=== PATIENT | male | born 1930 | race Caucasian/White ===

== ENCOUNTER 2020-11-14 18:47 | Inpatient (IN) ==
[2020-11-15 07:31] LABS: Basophils % 0.4 %; Eosinophils # 0.1 K/mcL (0.0-0.6); Hematocrit 49.4 % (37.5-50.1); Hemoglobin 16.9 g/dL (12.9-16.9); Immature Granulocytes % 0.2 % (0-4); Lymphocytes # 1.2 K/mcL (0.6-4.6); Lymphocytes % 23.8 %; Mean Corpuscular HGB Conc 34.2 g/dL (31.6-35.5); Mean Corpuscular Hemoglobin 30.6 pg (28.0-33.3); Mean Corpuscular Volume 89.5 fL (83.0-100.0); Mean Platelet Volume 11.4 fL (9.4-12.4); Monocytes # 0.7 K/mcL (0.0-1.3); Red Blood Count 5.52 M/mcL (4.19-5.50); Red Cell Distribution Width 14.2 % (11.5-14.5); Segmented Neutrophils % 59.6 %
[2020-11-15 07:32] LABS: BUN/Creatinine Ratio 21 (6-26); Blood Urea Nitrogen 21 mg/dL (8-23); Calcium 8.4 mg/dL (8.6-10.3); Carbon Dioxide 30 mEq/L (23-29); Chloride 103 mEq/L (98-107); Glucose 93 mg/dL (70-105); Osmolality,Calculated 291 (280-300); Potassium 3.7 mEq/L (3.5-5.1); Sodium 139 mEq/L (136-145); eGFR For African Americans > 60 (> 60); eGFR For Non-African Americans > 60 (> 60)
[2020-11-15 07:46] LABS: Platelet Count 91 K/mcL (140-400)
[2020-11-15] MEDS: Aspirin Enteric Coated 325 MG Tablet PO SCH (08:33)
[2020-11-15] MEDS: Metoprolol XL (24 HR) Succ 50 MG TAB.ER.24H PO SCH (08:33)
[2020-11-16] MEDS: Aspirin Enteric Coated 325 MG Tablet PO SCH (09:50)
[2020-11-16] MEDS: Metoprolol XL (24 HR) Succ 50 MG TAB.ER.24H PO SCH (09:51)
[2020-11-16] MEDS: hydroCHLOROthiazide 25 MG TABLET PO SCH (09:51)
[2020-11-16] MEDS: amLODIPine 5 MG TABLET PO SCH (09:56)
[2020-11-17] MEDS: hydroCHLOROthiazide 25 MG TABLET PO SCH (07:07)
[2020-11-17] MEDS: Metoprolol XL (24 HR) Succ 50 MG TAB.ER.24H PO SCH (07:29)
[2020-11-17] MEDS: amLODIPine 5 MG TABLET PO SCH (07:29)
[2020-11-17] MEDS: Aspirin Enteric Coated 325 MG Tablet PO SCH (07:30)
[2020-11-17] MEDS ORDERED: cloNIDine HCL 0.1 MG TABLET PO PRN (13:20)
[2020-11-18] MEDS: Aspirin Enteric Coated 325 MG Tablet PO SCH (08:26)
[2020-11-18] MEDS: hydroCHLOROthiazide 25 MG TABLET PO SCH (08:26)
[2020-11-18] MEDS: amLODIPine 5 MG TABLET PO SCH (08:26)
[2020-11-18] MEDS: Metoprolol XL (24 HR) Succ 50 MG TAB.ER.24H PO SCH (08:26)
[2020-11-19 07:06] LABS: Basophils % 0.4 %; Eosinophils % 0.1 %; Hemoglobin 17.3 g/dL (12.9-16.9); Immature Granulocytes % 0.8 % (0-4); Lymphocytes # 1.1 K/mcL (0.6-4.6); Lymphocytes % 12.7 %; Mean Corpuscular HGB Conc 34.6 g/dL (31.6-35.5); Mean Corpuscular Hemoglobin 30.8 pg (28.0-33.3); Mean Corpuscular Volume 89.1 fL (83.0-100.0); Mean Platelet Volume 11.5 fL (9.4-12.4); Monocytes # 1.1 K/mcL (0.0-1.3); Monocytes % 12.2 %; Neutrophils # 6.6 K/mcL (1.6-8.9); Platelet Count 142 K/mcL (140-400); Red Blood Count 5.61 M/mcL (4.19-5.50); Red Cell Distribution Width 13.9 % (11.5-14.5); Segmented Neutrophils % 73.8 %
[2020-11-19 07:34] LABS: BUN/Creatinine Ratio 28 (6-26); Blood Urea Nitrogen 30 mg/dL (8-23); Calcium 8.7 mg/dL (8.6-10.3); Carbon Dioxide 28 mEq/L (23-29); Chloride 101 mEq/L (98-107); Glucose 111 mg/dL (70-105); Osmolality,Calculated 291 (280-300); Potassium 3.9 mEq/L (3.5-5.1); Sodium 137 mEq/L (136-145); eGFR For African Americans > 60 (> 60); eGFR For Non-African Americans > 60 (> 60)
[2020-11-19] MEDS: Aspirin Enteric Coated 325 MG Tablet PO SCH (10:10)
[2020-11-19] MEDS: amLODIPine 5 MG TABLET PO SCH (10:10)
[2020-11-19] MEDS: Metoprolol XL (24 HR) Succ 50 MG TAB.ER.24H PO SCH (10:10)
[2020-11-19] MEDS: hydroCHLOROthiazide 25 MG TABLET PO SCH (10:10)
[2020-11-20] MEDS: hydroCHLOROthiazide 25 MG TABLET PO SCH (08:40)
[2020-11-20] MEDS: amLODIPine 5 MG TABLET PO SCH (08:41)
[2020-11-20] MEDS: Aspirin Enteric Coated 325 MG Tablet PO SCH (08:41)
[2020-11-20] MEDS: Metoprolol XL (24 HR) Succ 50 MG TAB.ER.24H PO SCH (08:42)
[2020-11-20] MEDS: Acetaminophen 325 MG TABLET PO PRN (17:25)
[2020-11-21] MEDS: Acetaminophen 325 MG TABLET PO PRN (04:46)
[2020-11-21] MEDS: hydroCHLOROthiazide 25 MG TABLET PO SCH (09:51)
[2020-11-21] MEDS: Metoprolol XL (24 HR) Succ 50 MG TAB.ER.24H PO SCH (09:51)
[2020-11-21] MEDS: amLODIPine 5 MG TABLET PO SCH (09:51)
[2020-11-21] MEDS: Aspirin Enteric Coated 325 MG Tablet PO SCH (09:51)
[2020-11-22] MEDS: hydroCHLOROthiazide 25 MG TABLET PO SCH (09:36)
[2020-11-22] MEDS: Aspirin Enteric Coated 325 MG Tablet PO SCH (09:36)
[2020-11-22] MEDS: amLODIPine 5 MG TABLET PO SCH (09:36)
[2020-11-22] MEDS: Metoprolol XL (24 HR) Succ 50 MG TAB.ER.24H PO SCH (09:36)
[2020-11-23] MEDS: hydroCHLOROthiazide 25 MG TABLET PO SCH (07:58)
[2020-11-23] MEDS: amLODIPine 5 MG TABLET PO SCH (07:58)
[2020-11-23] MEDS: Aspirin Enteric Coated 325 MG Tablet PO SCH (07:59)
[2020-11-23] MEDS: Metoprolol XL (24 HR) Succ 50 MG TAB.ER.24H PO SCH (07:59)
[2020-11-24] MEDS: amLODIPine 5 MG TABLET PO SCH (09:02)
[2020-11-24] MEDS: hydroCHLOROthiazide 25 MG TABLET PO SCH (09:03)
[2020-11-24] MEDS: Acetaminophen 325 MG TABLET PO PRN ×2 (09:03→16:34)
[2020-11-24] MEDS: Metoprolol XL (24 HR) Succ 50 MG TAB.ER.24H PO SCH (09:03)
[2020-11-24] MEDS: Aspirin Enteric Coated 325 MG Tablet PO SCH (09:03)
[2020-11-24] MEDS ORDERED: Preparation H Ointment 57 GM TUBE RC PRN (13:31)
[2020-11-25] MEDS: Metoprolol XL (24 HR) Succ 50 MG TAB.ER.24H PO SCH (08:18)
[2020-11-25] MEDS: Aspirin Enteric Coated 325 MG Tablet PO SCH (08:18)
[2020-11-25] MEDS: Acetaminophen 325 MG TABLET PO PRN (08:18)
[2020-11-25] MEDS: hydroCHLOROthiazide 25 MG TABLET PO SCH (08:19)
[2020-11-25] MEDS: amLODIPine 5 MG TABLET PO SCH (08:19)
[2020-11-26] MEDS: Acetaminophen 325 MG TABLET PO PRN (08:05)
[2020-11-26] MEDS: hydroCHLOROthiazide 25 MG TABLET PO SCH (08:05)
[2020-11-26] MEDS: amLODIPine 5 MG TABLET PO SCH (08:05)
[2020-11-26] MEDS: Aspirin Enteric Coated 325 MG Tablet PO SCH (08:05)
[2020-11-26] MEDS: Metoprolol XL (24 HR) Succ 50 MG TAB.ER.24H PO SCH (08:05)
[2020-11-27] MEDS: hydroCHLOROthiazide 25 MG TABLET PO SCH (09:10)
[2020-11-27] MEDS: Aspirin Enteric Coated 325 MG Tablet PO SCH (09:11)
[2020-11-27] MEDS: Metoprolol XL (24 HR) Succ 50 MG TAB.ER.24H PO SCH (09:11)
[2020-11-27] MEDS: amLODIPine 5 MG TABLET PO SCH (09:11)
[2020-11-28 06:36] VITALS: BP 112/73; PULSE 89; RESP 17; TEMP 97.5; O2SAT 97
[2020-11-28] MEDS: Aspirin Enteric Coated 325 MG Tablet PO SCH (08:31)
[2020-11-28] MEDS: hydroCHLOROthiazide 25 MG TABLET PO SCH (08:32)
[2020-11-28] MEDS: Metoprolol XL (24 HR) Succ 50 MG TAB.ER.24H PO SCH (08:32)
[2020-11-28] MEDS: amLODIPine 5 MG TABLET PO SCH (08:32)
== END 2020-11-28 14:10 | disposition home health service (06) | DRG 178 ==
LOC: INPPIK 19:39
PROVIDERS: ADMIT Internal Medicine; ATTEND Internal Medicine